=== PATIENT | male | born 1970 | race Caucasian/White ===

== ENCOUNTER 2016-10-12 18:32 | Emergency (ER) | payer SELFPAY ==
[~2016-10-12] VITALS: Ht 180.3 cm; Wt 78.0 kg
[2016-10-12 18:34] VITALS: BP 134/91; PULSE 77; RESP 18; TEMP 98.7; O2SAT 99
--- NOTE | 2016-10-12 19:13 | PD ---
Physical Exam Time Seen by Provider: 19:12 Narrative 46 y/o male here for evaluation of abdominal pain for 2 days. Vital signs reviewed. Seen at triage desk. Awaiting bed placement. Data Data Last Documented VS Vital Signs Date Time Temp Pulse Resp B/P Pulse Ox O2 Delivery O2 Flow Rate FiO2 10/12/16 18:34 98.7 77 18 134/91 99 MDM Medical Record Reviewed: Yes Supervised Visit with ROBERT: No Oscar Betancourt Oct 12, 2016 19:13
[2016-10-12] MEDS ORDERED: PREV15CA15 PO (21:54)
[2016-10-12 21:58] VITALS: BP 158/96; PULSE 63; RESP 18; O2SAT 98
--- NOTE | 2016-10-12 22:09 | PD ---
HPI Chief Complaint: GI Complaint Time Seen by Provider: 21:38 Travel History International Travel<30 days: No Contact w/Intl Traveler<30days: No Traveled to known affect area: No History of Present Illness HPI The patient is a 46 year old male who presents to the [facility] emergency department with a history of abdominal pain in the center of the abdomen that he reports began 2 days ago. The patient reports that the pain is in the center of his abdomen. He has difficulty describing the character of the pain. He reports it has been constant, except briefly when he was seen in the emergency department yesterday in [place] for evaluation the pain seemed to improve after treatment. The patient reports that he had a CT scan done as well as blood work. He was diagnosed with gastritis and sent home with a prescription for Prevacid. He reports that he did start taking the medication today. The patient reports that he then went on vacation and the pain seemed to be getting worse. The patient has had nausea and vomiting to yesterday, 4 today. He denies having any diarrhea. His last bowel movement was yesterday. He denies having any blood in his stool or black or tarry stools. He denies having any dysuria, hematuria, urinary urgency or frequency. The patient reports having associated fatigue, generalized weakness and reports that he feels short of breath with exertion. On review of systems, the patient denies any recent fevers, cough, congestion, neck pain, chest pain, or neurologic symptoms. [facility] Past Medical History Narrative Medical The patient's past medical history is significant for a prior history of acid reflux, gastritis. Diminished Hearing: No GERD: Yes Tetanus Vaccination: Unknown Influenza Vaccination: Yes Past Surgical History Narrative Surgical The patient's past surgical history is reportedly none. Surgical History: No Previous Surgery Social History Alcohol Use: No Tobacco Use: No Substance Use: No Allergies-Medications (Allergen,Severity, Reaction): Coded Allergies: No Known Allergies (Unverified , 10/12/16) Reported Meds & Prescriptions Reported Meds & Active Scripts Active Zofran Odt (Ondansetron Odt) 4 Mg Tab 4 Mg SL Q6HR PRN Reported Prevacid (Lansoprazole) 15 Mg Capdr 15 Mg PO DAILY Review of Systems Except as stated in HPI: all other systems reviewed are Neg General / Constitutional: No: Fever Eyes: No: Visual changes HENT: No: Headaches Cardiovascular: No: Chest Pain or Discomfort Respiratory: No: Shortness of Breath Gastrointestinal: Positive: Nausea, Vomiting, Abdominal Pain, Indigestion, Loss of Appetite, No: Diarrhea, Hematemesis, Hematochezia, Changes in Bowel Habits Genitourinary: No: Dysuria Musculoskeletal: No: Pain Skin: No Rash Neurologic: Positive: Weakness (generalized weakness), No: Focal Abnormalities , Change in Mentation, Slurred Speech, Sensory Disturbance Psychiatric: No: Depression Endocrine: No: Polydipsia Hematologic/Lymphatic: No: Easy Bruising Physical Exam Narrative General: The patient is a well-developed well-nourished male in no acute distress. Head and Neck exam: Head is normocephalic atraumatic. Eyes: EOMI, pupils are equal round and reactive to light. Nose: Midline septum with pink mucous membranes Mouth: Dentition unremarkable. Moist mucus membranes. Posterior oropharynx is not erythematous. No tonsillar hypertrophy. Uvula midline. Airway patent. Neck: No palpable lymphadenopathy. No nuchal rigidity. No thyromegaly. Cardiovascular: Regular rate and rhythm without murmurs, gallops, or rubs. Lungs: Clear to auscultation bilaterally. No wheezes, rhonchi, or rales. Abdomen: Soft, with tenderness on palpation in the midepigastric area, area just above the umbilicus. No other tenderness on palpation of the other quadrants of the abdomen. No tenderness on palpation of McBurney's point. Normal bowel sounds are audible. No guarding, rebound, or rigidity. Negative Oriental sign. Extremities: No clubbing, cyanosis, or edema. 2+ pulses in all 4 extremities. No calf tenderness on palpation. Back: No costovertebral angle tenderness to palpation. Neurologic Exam: Grossly nonfocal. Skin Exam: No rash noted. Intact skin that is warm and dry. Data Data Last Documented VS Vital Signs Date Time Temp Pulse Resp B/P Pulse Ox O2 Delivery O2 Flow Rate FiO2 10/12/16 22:18 18 98 Room Air 10/12/16 21:58 63 158/96 10/12/16 18:34 98.7 Orders Electrocardiogram (10/12/16 22:02) Complete Blood Count With Diff (10/12/16 22:02) Comprehensive Metabolic Panel (10/12/16 22:02) Creatine Kinase (Cpk) (10/12/16 22:02) Ckmb (Isoenzyme) Profile (10/12/16 22:02) Troponin I (10/12/16 22:02) B-Type Natriuretic Peptide (10/12/16 22:02) C-Reactive Protein (Crp) (10/12/16 22:02) Lipase (10/12/16 22:02) Urinalysis - C+S If Indicated (10/12/16 22:02) Westergren Sedimentation Rate (10/12/16 22:02) Chest, Single Ap (10/12/16 22:02) Iv Access Insert/Monitor (10/12/16 22:02) Ecg Monitoring (10/12/16 22:02) Oximetry (10/12/16 22:02) Sodium Chlor 0.9% 1000 Ml Inj (Ns 1000 M (10/12/16 22:15) Ondansetron Inj (Zofran Inj) (10/12/16 22:15) Morphine Inj (Morphine Inj) (10/12/16 22:15) CKMB (10/12/16 22:08) CKMB% (10/12/16 22:08) Sodium Chlor 0.9% 1000 Ml Inj (Ns 1000 M (10/12/16 23:00) Ketorolac Inj (Toradol Inj) (10/12/16 23:00) Pantoprazole Inj (Protonix Inj) (10/12/16 23:00) Ct Abd/Pel W/O Iv Contrast (10/13/16 00:18) Oral Rehydration (10/13/16 00:36) Labs Laboratory Tests Test 10/12/16 10/12/16 22:08 22:25 White Blood Count 8.1 TH/MM3 Red Blood Count 4.94 MIL/MM3 Hemoglobin 14.8 GM/DL Hematocrit 42.9 % Mean Corpuscular Volume 86.9 FL Mean Corpuscular Hemoglobin 29.9 PG Mean Corpuscular Hemoglobin 34.5 % Concent Red Cell Distribution Width 13.4 % Platelet Count 263 TH/MM3 Mean Platelet Volume 8.0 FL Neutrophils (%) (Auto) 71.6 % Lymphocytes (%) (Auto) 17.7 % Monocytes (%) (Auto) 6.3 % Eosinophils (%) (Auto) 3.9 % Basophils (%) (Auto) 0.5 % Neutrophils # (Auto) 5.8 TH/MM3 Lymphocytes # (Auto) 1.4 TH/MM3 Monocytes # (Auto) 0.5 TH/MM3 Eosinophils # (Auto) 0.3 TH/MM3 Basophils # (Auto) 0.0 TH/MM3 CBC Comment DIFF FINAL Differential Comment Erythrocyte Sedimentation Rate 6 mm/hr Sodium Level 138 MEQ/L Potassium Level 4.0 MEQ/L Chloride Level 103 MEQ/L Carbon Dioxide Level 25.8 MEQ/L Anion Gap 9 MEQ/L Blood Urea Nitrogen 13 MG/DL Creatinine 0.95 MG/DL Estimat Glomerular Filtration 85 ML/MIN Rate Random Glucose 103 MG/DL Calcium Level 9.1 MG/DL Total Bilirubin 0.6 MG/DL Aspartate Amino Transf 13 U/L (AST/SGOT) Alanine Aminotransferase 27 U/L (ALT/SGPT) Alkaline Phosphatase 101 U/L Total Creatine Kinase 110 U/L Creatine Kinase MB 1.5 NG/ML Troponin I LESS THAN 0.02 NG/ML C-Reactive Protein 0.42 MG/DL B-Type Natriuretic Peptide 11 PG/ML Total Protein 7.8 GM/DL Albumin 3.8 GM/DL Lipase 120 U/L Urine Color YELLOW Urine Turbidity CLEAR Urine pH 5.5 Urine Specific [place] 1.030 Urine Protein TRACE mg/dL Urine Glucose (UA) NEG mg/dL Urine Ketones 150 mg/dL Urine Occult Blood NEG Urine Nitrite NEG Urine Bilirubin NEG Urine Urobilinogen 2.0 MG/DL Urine Leukocyte Esterase NEG Urine WBC LESS THAN 1 /hpf Urine Mucus FEW /lpf Microscopic Urinalysis Comment CULT NOT INDICATED MDM Medical Decision Making Medical Screen Exam Complete: Yes Emergency Medical Condition: Yes Medical Record Reviewed: Yes Interpretation(s) Last Impressions Chest X-Ray 10/12/162201 Signed Impressions: Service Date/Time: Wednesday, October 12, 2016 22:04 - CONCLUSION: Normal examination for a patient of this age. Fredrick Ashley MD Differential Diagnosis Viral syndrome, versus acid reflux, versus gastritis, versus pancreatitis, versus pyelonephritis, versus bowel obstruction Narrative Course During the course of the patients emergency department visit, the patients history, examination, and differential diagnosis were reviewed with the patient. The patient had IV access obtained and blood work sent for analysis. The patient was placed on a licensing and registration director with oximetry and blood pressure monitoring. An ECG has been ordered. Records from the other emergency department will be obtained. The patient was initially provided normal saline a 1 L IV fluid bolus, morphine 2 mg IV, Zofran 4 mg IV. The patient was noted to have ketones in his urine and was given a second liter of normal saline IV fluids, Toradol 15 mg IV for pain, Protonix 40 mg IV for acid reduction. The patients laboratory studies were reviewed and remarkable for a white count of 8.1, hemoglobin 14.8, platelets 263 with neutrophils 71.6, sedimentation rate 6, CMP is remarkable for a GFR of 85, AST 13, CPK 110, troponin I less than 0.02, C-reactive protein 0.42, BNP 11, lipase 120, urinalysis shows 150 ketones otherwise unremarkable. Radiology studies were reviewed and remarkable for a chest x-ray that shows no acute abnormality. A CT scan of the abdomen and pelvis without contrast as the patient has had IV contrast done yesterday shows high density within the gallbladder likely representing sludge or may be related to previous IV contrast according to the reading radiologist. Otherwise unremarkable CT. This density in the gallbladder is related to the patient's IV contrast administered for CT yesterday. The patient will be discharged home with a prescription for Zofran and Levsin. He is instructed regarding the importance of close follow-up with his primary care physician for reexamination in the next 2-3 days. The patient is resting comfortably and feels better, is alert and in no distress. The patients results and examination findings were discussed with the patient. The repeat examination is unremarkable and benign. The history, exam, diagnostic testing, and current condition do not suggest any significant pathology to warrant further testing, continued ED treatment, admission, or surgical evaluation at this point. The vital signs have been stable. The patient does not have uncontrollable pain, intractable vomiting, or other significant symptoms. The patient's condition is stable and appropriate for discharge. The patient will pursue further outpatient evaluation with a primary care physician or other designated or consulting physician as indicated in the discharge instructions. The patient expressed understanding and was agreeable with this plan. Diagnosis Primary Impression: Abdominal pain Qualified Code: R10.10 - Pain of upper abdomen Additional Impression: Vomiting Qualified Code: R11.2 - Non-intractable vomiting with nausea, unspecified vomiting type Referrals: Primary Care Physician 2 days Patient Instructions: Abdominal Pain (ED), Acute Nausea and Vomiting (ED), General Instructions Med/Other Pt SpecificInfo: Prescription(s) given Scripts Hyoscyamine Odt (Levsin-SL)0.125 Mg Subl0.125 Mg SL Q6H PRN (stomach cramping) # 12 TAB.SL Ref 0 Prov:Carmen Benitez MD 10/13/16 Ondansetron Odt (Zofran Odt)4 Mg Tab4 Mg SL Q6HR PRN (Nausea/Vomiting) #7 TAB Ref 0 Prov:Carmen Benitez MD 10/13/16 Disposition: 01 DISCHARGE HOME Condition: Stable Carmen Benitez MD Oct 12, 2016 22:09
[2016-10-12] MEDS ORDERED: SODIUM CHLOR 0.9% 1000 ML INJ 1,000 ML IV ONE ×2 (22:15→23:00)
[2016-10-12] MEDS ORDERED: MORPHINE SULFATE 4 MG/ML INJ IV PUSH ONE (22:15)
[2016-10-12] MEDS ORDERED: ONDANSETRON HCL 4 MG/2 ML VIAL IV ONE (22:15)
[2016-10-12 22:18] VITALS: RESP 18; O2SAT 98
[2016-10-12 22:24] LABS: AUTOMATED NEUTROPHIL # 5.8 TH/MM3 (1.8-7.7); BASOPHIL % 0.5 % (0.0-2.0); EOSINOPHIL # 0.3 TH/MM3 (0-0.4); EOSINOPHIL % 3.9 % (0.0-4.0); HEMATOCRIT 42.9 % (39.0-51.0); HEMO FLAGS DIFF FINAL; LYMPH % 17.7 % (9.0-44.0); LYMPHOCYTE # 1.4 TH/MM3 (1.0-4.8); MEAN CELL VOLUME 86.9 FL (80.0-100.0); MEAN CORPUSCULAR HEMOGLOBIN 29.9 PG (27.0-34.0); MEAN CORPUSCULAR HGB CONC 34.5 % (32.0-36.0); MONO % 6.3 % (0.0-8.0); NEUT % 71.6 % (16.0-70.0); PLATELET COUNT 263 TH/MM3 (150-450); RED BLOOD COUNT 4.94 MIL/MM3 (4.50-5.90); RED CELL DISTRIBUTION WIDTH 13.4 % (11.6-17.2); WHITE BLOOD COUNT 8.1 TH/MM3 (4.0-11.0)
[2016-10-12 22:32] LABS: BLOOD, URINE NEG (NEG); COMMENT (UR) CULT NOT INDICATED; CULTURE IF INDICATED CULT NOT INDICATED; GLUCOSE,URINE NEG (NEG); KETONE, URINE 150 mg/dL (NEG); MUCUS URINE FEW /lpf (OCC); NITRITE,URINE NEG (NEG); PH, URINE 5.5 (5.0-8.5); URINE COLOR YELLOW (YELLW/STRAW)
[2016-10-12 22:39] LABS: ALT (GPT) 27 U/L (12-78); ANION GAP 9 MEQ/L (5-15); AST (GOT) 13 U/L (15-37); BICARBONATE 25.8 MEQ/L (21.0-32.0); BLOOD UREA NITROGEN 13 MG/DL (7-18); CHLORIDE 103 MEQ/L (98-107); GLOMERULAR FILTRATION RATE 85 ML/MIN (>89); SODIUM (NA) 138 MEQ/L (136-145)
[2016-10-12 22:43] LABS: ALKALINE PHOSPHATASE 101 U/L (45-117); CREATINE KINASE 110 U/L (39-308); TOTAL BILIRUBIN ADULT 0.6 MG/DL (0.2-1.0)
--- NOTE | 2016-10-12 22:44 | RADRPT ---
EXAM DATE/TIME: 10/12/2016 22:04 [facility] COMPARISON: No previous studies available for comparison. INDICATIONS : Short of breath. MEDICAL HISTORY : None. SURGICAL HISTORY : None. ENCOUNTER: Initial ACUITY: 1 day PAIN SCORE: 0/10 LOCATION: Bilateral chest FINDINGS: A single view of the chest demonstrates the lungs to be symmetrically aerated without evidence of mas s, infiltrate or effusion. The cardiomediastinal contours are unremarkable. Osseous structures are intact. CONCLUSION: Normal examination for a patient of this age. Fredrick Ashley MD on October 12, 2016 at 22:42 Board Certified Radiologist. This report was verified electronically.
[2016-10-12 22:55] LABS: CKMB 1.5 NG/ML (0.5-3.6)
[2016-10-12] MEDS ORDERED: PANTOPRAZOLE SODIUM 40 MG VIAL IV PUSH ONE (23:00)
[2016-10-12] MEDS ORDERED: KETOROLAC TROMETHAMINE 30 MG/ML (IVP) VIAL IV PUSH ONE (23:00)
[2016-10-13 00:30] VITALS: BP 142/87; PULSE 77; RESP 18; O2SAT 99
--- NOTE | 2016-10-13 00:44 | RADRPT ---
EXAM DATE/TIME: 10/13/2016 00:25 [facility] COMPARISON: No previous studies available for comparison. INDICATIONS : Abdomen pain. ORAL CONTRAST: No oral contrast ingested. RADIATION DOSE: 14.19 CTDIvol (mGy) MEDICAL HISTORY : Gastroesophageal reflux disease. SURGICAL HISTORY : None. ENCOUNTER: Initial ACUITY: 1 day PAIN SCALE: 5/10 LOCATION: Bilateral abdomen TECHNIQUE: Volumetric scanning of the abdomen and pelvis was performed. Using automated exposure control and ad justment of the mA and/or kV according to patient size, radiation dose was kept as low as reasonably achievable to obtain optimal diagnostic quality images. DICOM format image data is available electro nically for review and comparison. FINDINGS: Lung bases are clear. No pleural or pericardial effusions. High attenuation within the gallbladder ma y reflect sludge. Liver, spleen, pancreas, adrenal glands, kidneys are unremarkable. Stomach, small a nd large bowel are unremarkable. Appendix normal. Urinary bladder and prostate are normal. No adenopa thy or aneurysm. Osseous structures are intact. CONCLUSION: 1. High density within the gallbladder likely represents sludge or may be related to previous intrave nous contrast administration if a CT has recently been performed. 2. Otherwise unremarkable. Donny Burger MD on October 13, 2016 at 0:41 Board Certified Radiologist. This report was verified electronically.
[2016-10-13] MEDS ORDERED: ZOFR4TAB3 SL (00:45)
[2016-10-13] MEDS ORDERED: LEVS0.124 SL (00:48)
--- NOTE | 2016-10-13 08:21 | EKG ---
Date Performed: 10/12/2016 Time Performed: 22:52:15 PTAGE: 46 years EKG: SINUS BRADYCARDIA MINIMAL VOLTAGE CRITERIA FOR LVH, CONSIDER NORMAL VARIANT BORDERLINE ECG NO PREVIOUS TRACING DOCTOR: Shay Cuellar Interpretating Date/Time 10/13/2016 08:20:07
== END 2016-10-13 01:16 | disposition home or self-care (01) ==
LOC: NEPE 18:32
DX: R10.10 Upper abdominal pain, unspecified (principal); R11.2 Nausea with vomiting, unspecified; K21.9 Gastro-esophageal reflux disease without esophagitis
CPT/HCPCS: 71010; 74176; 80053; 81001; 82550; 82552; 83690; 83880; 84484; 85025; 85652; 86140; 93005; 96361; 96374; 96375; 99285; C9113; J1885; J2270; J2405; J7030